=== PATIENT | female | born 1945 | race Caucasian/White ===

== ENCOUNTER 2020-07-02 13:40 | Emergency (ER) | payer OTHER, MEDICARE, SELFPAY ==
[2020-07-02 13:52] VITALS: BP 176/84; PULSE 78; RESP 18; TEMP 36.7; O2SAT 95; BMI 36.3
[2020-07-02 14:58] VITALS: BP 140/82; PULSE 76; RESP 18; O2SAT 95
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
[2020-07-02 15:58] VITALS: BP 155/93; PULSE 74; O2SAT 96
[2020-07-02 16:27] VITALS: BP 155/93; PULSE 99; O2SAT 90
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
[2020-07-02 17:14] VITALS: BP 168/86; PULSE 75; RESP 18; O2SAT 92
[2020-07-02 17:16] VITALS: BP 168/86; PULSE 75; O2SAT 93
--- NOTE | 2020-07-05 10:09 | DCPLANNER ---
sales strategy manager had message to schedule a follow up appointment for patient with ENT. sales strategy manager emailed patients information to both Cara and Jackie at [facility] General Surgery. Patients information will be printed and reviewed. Clinic will call patient with appointment information.
--- NOTE | 2020-07-12 11:13 | DCPLANNER ---
Clinic called patient to schedule a follow up appointment and patient stated that he did not want an appointment at this time. Patient stated that she would call the clinic back to schedule an appointment, patient has not called clinic back to schedule. Clinic has tried to call patient and again and sent patient a letter stating that if patient wanted to schedule an appointment, for patient to call clinic.
== END 2020-07-02 17:17 | disposition home or self-care (01) ==
PROVIDERS: Emergency Provider Family Medicine
DX: S02.2XXA Fracture of nasal bones, initial encounter for closed fracture (principal); S02.92XA Unspecified fracture of facial bones, initial encounter for closed fracture; Z79.82 Long term (current) use of aspirin; Z79.84 Long term (current) use of oral hypoglycemic drugs; V89.2XXA Person injured in unspecified motor-vehicle accident, traffic, initial encounter
CPT/HCPCS: 70450; 70486; 72125; 73030; 99283

== ENCOUNTER 2020-09-01 09:09 | Outpatient (CLI) | payer OTHER, SELFPAY ==
--- NOTE | 2020-09-01 09:13 | MR_ITS ---
WS: [id number] MRI RIGHT SHOULDER NONCONTRAST TECHNIQUE: Sagittal T2, coronal T1, T2 and proton density imaging. Axial gradient PDE imaging. CLINICAL INFORMATION: PAIN IN RIGHT SHOULDER COMPARISON: None. FINDINGS: Moderate arthritis AC joint with hypertrophic spurring. Mild edema. Slight subacromial spurring. Mild downsloping acromion. AC joint effusion. Small subacromial/subdeltoid effusion. Mild diffuse thinning of the distal supraspinatus. Supraspinat us is intact. Normal infraspinatus. Normal teres minor. Normal subscapularis. Tiny biceps tendon in t he bicipital groove which appears intact. Biceps labral anchor appears intact. Moderate degenerative fraying of the glenoid labrum. No acute fractures. MR/MR shoulder RT wo con* [id number] IMPRESSION: 1. Moderate degenerative arthritis AC joint with mild edema and synovial thick ening. Mild downsloping acromion. 2. Chronic thinning of the distal supraspinatus. No high-grade rotator cuff te ars. 3. Tiny biceps tendon in the bicipital groove appears intact. Biceps labral an chor appears intact. 4. Normal bone marrow signal in the humeral head and neck. No acute fractures. 5. Degenerative fraying of the glenoid labrum which appears grossly intact.
--- NOTE | 2020-09-01 10:01 | XR_ITS ---
WS: [id number] WRIST LEFT TECHNIQUE: 3 views of the left wrist CLINICAL INFORMATION: LEFT WRIST PAIN COMPARISON: None. FINDINGS: Mild narrowing of the radiocarpal joint. Normal distal radial ulnar joint. Normal scaphoid and lunate . Advanced degenerative arthritis first CMC and STT with sclerosis and degenerative changes. Mild sof t tissue edema. No visualized fractures. Partially visualized sclerotic lesion in the fourth proximal phalanx likely enchondroma. Recommend de dicated hand x-ray for further evaluation. XR/XR wrist LT min 3V* [id number] IMPRESSION: 1. Mild soft tissue edema about the left wrist. No visualized fractures. 2. Advanced degenerative arthritis first CMC and STT with sclerosis and subcho ndral cystic change. 3. Partially visualized sclerotic lesion in the fourth proximal phalanx likely enchondroma. Recommend dedicated hand x-ray for further evaluation.
== END 2020-09-01 09:10 | disposition home or self-care (01) ==
PROVIDERS: Visit Provider Family Medicine
DX: R60.0 Localized edema (principal); M19.032 Primary osteoarthritis, left wrist
CPT/HCPCS: 73110; 73221

== ENCOUNTER 2020-09-23 10:52 | Outpatient (CLI) | payer MEDICARE, OTHER, SELFPAY ==
--- NOTE | 2020-09-23 10:58 | XR_ITS ---
WS: [id number] Left hand, 3 views, 09/23/2020 Clinical Data: PAIN IN LEFT HAND Comparison: Left wrist, 09/01/2020. Findings: No fractures or dislocations are seen. There is osteoarthritic change at the base of the left first m etacarpal as it articulates with the trapezium. The probable enchondroma at the base of the left four th proximal phalanx may be partly obscured by the patient's ring. There is minimal osteoarthritic columba nge of the second through fifth DIP joints. Impression: 1. 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 2. Probable enchondroma at the base of the fourth proximal phalanx of the left hand. 3. Osteoarthritic change of the DIP joints of the second through fifth fingers of the left hand.
== END 2020-09-23 10:53 | disposition home or self-care (01) ==
LOC: RADWPI 10:57
PROVIDERS: PCP Family Medicine; Visit Provider Family Medicine
DX: M79.642 Pain in left hand (principal)
CPT/HCPCS: 73130

== ENCOUNTER → 2021-01-19 09:35 | Outpatient (BNVA) | payer OTHER, SELFPAY | PROVIDERS: PCP Family Medicine; Referring Provider Family Medicine; Visit Provider Specialist | DX: M19.032 Primary osteoarthritis, left wrist (principal); M25.532 Pain in left wrist | CPT/HCPCS: 73110 ==

== ENCOUNTER 2021-01-19 11:20 | Outpatient (CLI) | payer OTHER, MEDICARE, SELFPAY | END 2021-01-19 11:21 | disposition home or self-care (01) | LOC: SPT 11:21 | PROVIDERS: PCP Family Medicine; Visit Provider Specialist | DX: Z46.89 Encounter for fitting and adjustment of other specified devices (principal); M18.12 Unilateral primary osteoarthritis of first carpometacarpal joint, left hand | CPT/HCPCS: 97760; L3924 ==

== ENCOUNTER → 2021-02-09 10:59 | Outpatient (BNVA) | payer OTHER, SELFPAY | PROVIDERS: PCP Family Medicine; Referring Provider Family Medicine; Visit Provider Specialist | DX: M19.011 Primary osteoarthritis, right shoulder (principal); M25.511 Pain in right shoulder | CPT/HCPCS: 73030 ==

== ENCOUNTER 2021-02-16 10:42 | Outpatient (CLI) | payer OTHER, SELFPAY ==
--- NOTE | 2021-02-16 10:47 | MR_ITS ---
WS: [id number] MRI RIGHT SHOULDER NONCONTRAST TECHNIQUE: Sagittal T2, coronal T1, T2 and proton density imaging. Axial gradient PDE imaging. CLINICAL INFORMATION: PRIMARY OSTEOARTHRITIS COMPARISON: September 01, 2020 FINDINGS: Prominent protruding osteophytes arising from the acromion and clavicle projecting inferiorly as seen on the recent radiograph February 09, 2021. This impinges the distal supraspinatus and supraspinatus at the level of glenohumeral joint. Moderate degenerative arthritis AC joint with edema and synovial thickening. Small amount of fluid in the joint. Small subacromial/subdeltoid effusion. Normal bone ma rrow signal in the humerus and glenoid. Tendinopathy with thinning of the distal supraspinatus. Impingement and deformity of the supraspinatu s due to the protruding osteophytes. Normal infraspinatus. Normal teres minor. Small subcoracoid effu vivek. Glenoid labrum appears grossly normal. Tiny biceps tendon in the bicipital groove. Tendinopathy involving the intra-articular biceps tendon with increased T2 signal abnormality. Biceps labral anch or appears grossly intact. MR/MR shoulder RT wo con* [id number] IMPRESSION: 1. Advanced hypertrophic changes AC joint with mild downsloping acromion. Prot ruding inferior projecting osteophytes at the distal acromion and distal clavic le with impingement on the far anterior supraspinatus. Associated tendinopathy in the supraspinatus with deformity. Chronic thinning. No full-thickness tears. 2. Rotator cuff is otherwise intact. 3. Tiny biceps tendon in the bicipital groove unchanged from previous. Biceps labral anchor appears intact. 4. Tendinopathy involving the intra-articular biceps tendon with increased T2 signal abnormality. 5. Small subacromial/subdeltoid effusion.Small subcoracoid effusion.
== END 2021-02-16 10:43 | disposition home or self-care (01) ==
LOC: RADWPI 10:43
PROVIDERS: PCP Family Medicine; Visit Provider Specialist
DX: M25.511 Pain in right shoulder (principal); M19.011 Primary osteoarthritis, right shoulder; M25.411 Effusion, right shoulder; M75.21 Bicipital tendinitis, right shoulder; M25.711 Osteophyte, right shoulder; M75.81 Other shoulder lesions, right shoulder; X58.XXXA Exposure to other specified factors, initial encounter; S49.91XA Unspecified injury of right shoulder and upper arm, initial encounter
CPT/HCPCS: 73221

== ENCOUNTER → 2022-04-27 08:05 | Outpatient (BNVA) | payer OTHER, MEDICARE, SELFPAY | PROVIDERS: PCP Family Medicine; Visit Provider Specialist | DX: M19.011 Primary osteoarthritis, right shoulder (principal); Z71.89 Other specified counseling | CPT/HCPCS: 20610; J1100; J2795; J3301 ==

== ENCOUNTER → 2022-08-03 09:06 | Outpatient (BNVA) | payer OTHER, MEDICARE, SELFPAY | PROVIDERS: PCP Family Medicine; Visit Provider Specialist | DX: M19.011 Primary osteoarthritis, right shoulder (principal); M75.41 Impingement syndrome of right shoulder | CPT/HCPCS: 20610; J1100; J2795; J3301 ==

== ENCOUNTER 2022-08-10 13:40 | Outpatient (CLI) | payer MEDICARE, SELFPAY ==
--- NOTE | 2022-08-10 13:47 | MM_ITS ---
WS: [id number] LEFT 3D TOMOSYNTHESIS DIGITAL MAMMOGRAPHY WITH CAD CLINICAL INFORMATION: ANNUAL;HX BREAST CA;RT MST. Prior RIGHT mastectomy. COMPARISON: 2013 TECHNIQUE: 3 views of the left breast were obtained. FINDINGS: Scattered fibroglandular densities of the left breast. No suspicious focal mass, asymmetry, calcifications, or architectural distortion. No evidence of gabe gnancy. MM/[place] [id number] IMPRESSION: BI-RADS: 1-Negative FOLLOW UP: 1 Year Follow-up Recommend return to annual diagnostic mammography.
== END 2022-08-10 13:41 | disposition home or self-care (01) ==
LOC: RAD 13:42
PROVIDERS: PCP Family Medicine; Visit Provider Family Medicine
DX: Z85.3 Personal history of malignant neoplasm of breast (principal)
CPT/HCPCS: 77061; G0279

== ENCOUNTER → 2022-11-16 08:42 | Outpatient (BNVA) | payer MEDICARE, SELFPAY | PROVIDERS: PCP Family Medicine; Visit Provider Specialist | DX: M19.011 Primary osteoarthritis, right shoulder (principal) | CPT/HCPCS: 20610; J1100; J2795; J3301 ==

== ENCOUNTER → 2023-02-15 09:31 | Outpatient (BNVA) | payer MEDICARE, SELFPAY | PROVIDERS: PCP Family Medicine; Visit Provider Specialist | DX: M19.011 Primary osteoarthritis, right shoulder; Z71.89 Other specified counseling | CPT/HCPCS: 20610; J1100; J2795; J3301 ==

== ENCOUNTER → 2023-06-07 08:15 | Outpatient (BNVA) | payer MEDICARE, SELFPAY | PROVIDERS: PCP Family Medicine; Visit Provider Specialist | DX: M19.011 Primary osteoarthritis, right shoulder (principal); M75.41 Impingement syndrome of right shoulder | CPT/HCPCS: 20610; J1100; J2795; J3301 ==

== ENCOUNTER 2023-07-13 13:49 | Outpatient (CLI) | payer MEDICARE, SELFPAY ==
--- NOTE | 2023-07-13 13:56 | XR_ITS ---
WS: [id number] Chest 2 views, 07/13/2023 Clinical Data: COPD Comparison: Two-view chest, 09/04/2018 Findings: No nodules, masses or effusions are seen. The heart is normal. The pulmonary vascularity is not increased. No pneumonia or pneumothorax is seen. The diaphragms are flattened. The aortic arch s hows calcification and tortuosity. There is a kyphosis with osteoarthritic spurring of the thoracic s pine. Impression: 1. Atherosclerosis 2. Hyperinflation.
== END 2023-07-13 13:50 | disposition home or self-care (01) ==
LOC: RAD 13:51
PROVIDERS: PCP Family Medicine; Visit Provider Family Medicine
DX: J44.9 Chronic obstructive pulmonary disease, unspecified (principal)
CPT/HCPCS: 71046

== ENCOUNTER → 2023-08-31 10:25 | Outpatient (BNVA) | payer MEDICARE, SELFPAY | PROVIDERS: PCP Family Medicine; Visit Provider Specialist | DX: M75.41 Impingement syndrome of right shoulder (principal); M19.011 Primary osteoarthritis, right shoulder; Z71.89 Other specified counseling | CPT/HCPCS: 20610; J1100; J2795; J3301 ==

== ENCOUNTER → 2023-12-12 14:05 | Outpatient (BNVA) | payer MEDICARE, SELFPAY | PROVIDERS: PCP Family Medicine; Visit Provider Specialist | DX: M75.41 Impingement syndrome of right shoulder (principal); M19.011 Primary osteoarthritis, right shoulder; Z71.89 Other specified counseling | CPT/HCPCS: 20610 ==

== ENCOUNTER → 2024-03-27 14:37 | Outpatient (BNVA) | payer MEDICARE, SELFPAY | PROVIDERS: PCP Family Medicine; Visit Provider Specialist | DX: M19.011 Primary osteoarthritis, right shoulder (principal); M75.41 Impingement syndrome of right shoulder; Z71.89 Other specified counseling | CPT/HCPCS: 20610; J1100; J2795; J3301 ==

== ENCOUNTER → 2024-07-04 09:14 | Outpatient (BNVA) | payer MEDICARE, SELFPAY | PROVIDERS: PCP Family Medicine; Visit Provider Specialist | DX: M19.011 Primary osteoarthritis, right shoulder (principal); M75.41 Impingement syndrome of right shoulder; Z71.89 Other specified counseling | CPT/HCPCS: 20610; J1100; J2795; J3301 ==

== ENCOUNTER 2024-08-11 12:40 | Outpatient (CLI) | payer MEDICARE, SELFPAY ==
--- NOTE | 2024-08-11 12:54 | MM_ITS ---
WS: [id number] LEFT 3D TOMOSYNTHESIS DIGITAL MAMMOGRAPHY WITH CAD CLINICAL INFORMATION: MALIGNANT NEOPLASM OF BREAST HISTORY: RIGHT mastectomy COMPARISON: 08/10/2022 TECHNIQUE: 3 views of the left breast were obtained. FINDINGS: Scattered fibroglandular densities of the left breast. No suspicious focal mass, asymmetry, calcifications, or architectural distortion. No evidence of malignancy. MM/MM diag LT tomosynthesis [id number] IMPRESSION: DENSITY: There are scattered areas of fibroglandular density. BI-RADS: 1 - Negative. FOLLOW UP: 1 Year Follow-up Recommend return to annual screening mammography.
== END 2024-08-11 12:41 | disposition home or self-care (01) ==
PROVIDERS: PCP Family Medicine; Visit Provider Family Medicine
DX: C50.912 Malignant neoplasm of unspecified site of left female breast (principal); R92.322 Mammographic fibroglandular density, left breast
CPT/HCPCS: 77061; G0279

== ENCOUNTER → 2024-09-08 12:47 | Outpatient (BNVA) | payer MEDICARE, SELFPAY | PROVIDERS: PCP Family Medicine; Referring Provider Family Medicine; Visit Provider Nurse Practitioner Family | DX: R22.0 Localized swelling, mass and lump, head (principal); R20.8 Other disturbances of skin sensation; L30.9 Dermatitis, unspecified; L82.1 Other seborrheic keratosis; L57.8 Other skin changes due to chronic exposure to nonionizing radiation; Z80.8 Family history of malignant neoplasm of other organs or systems; L57.0 Actinic keratosis | CPT/HCPCS: 17000; 99204 ==

== ENCOUNTER 2024-09-09 13:38 | Outpatient (CLI) | payer MEDICARE, SELFPAY ==
--- NOTE | 2024-09-09 13:52 | XR_ITS ---
WS: [id number] SCREENING DEXA SCAN PO-MO CLINICAL INFORMATION: postmenopausal COMPARISON: None. FINDINGS: The L1-L4 bone mineral density measures 1.380 g/cm2. This corresponds to a T score score of 1.7 and Z score of 3.4. Left femoral neck bone mineral density measures 1.000 g/cm2. This corresponds to a T score of -0.1 and Z score of 1.8. Right femoral neck bone mineral density measures 1.005 g/cm2. This corresponds to a T score 0.0of and Z score of 1.8. Mean femoral neck bone mineral density measures 1.002 g/cm2. This corresponds to a T score of 0.0 and Z score of 1.8. XR/XR DEXA axial skeleton* [id number] IMPRESSION: Normal bone mineralization. Patient's FRAX calculated 10 year probability for major osteoporotic fracture i s 10.6% and osteoporotic hip fracture is 2.8%.
== END 2024-09-09 13:39 | disposition home or self-care (01) ==
LOC: RAD 13:39
PROVIDERS: PCP Family Medicine; Visit Provider Family Medicine
DX: Z78.0 Asymptomatic menopausal state (principal)
CPT/HCPCS: 77080

== ENCOUNTER → 2024-10-03 09:24 | Outpatient (BNVA) | payer MEDICARE, SELFPAY | PROVIDERS: PCP Family Medicine; Visit Provider Specialist | DX: M19.011 Primary osteoarthritis, right shoulder (principal) | CPT/HCPCS: 20610; J1100; J2795; J3301; J9999 ==

== ENCOUNTER → 2025-01-07 14:20 | Outpatient (BNVA) | payer MEDICARE, SELFPAY | PROVIDERS: PCP Nurse Practitioner Family; Visit Provider Specialist | DX: M19.011 Primary osteoarthritis, right shoulder (principal); M75.41 Impingement syndrome of right shoulder | CPT/HCPCS: 20610; J1100; J2795; J3301; J9999 ==

== ENCOUNTER → 2025-01-09 14:01 | Outpatient (BNVA) | payer MEDICARE, SELFPAY | PROVIDERS: PCP Nurse Practitioner Family; Visit Provider Nurse Practitioner Family | DX: R22.0 Localized swelling, mass and lump, head (principal); R20.8 Other disturbances of skin sensation; L40.0 Psoriasis vulgaris; L57.8 Other skin changes due to chronic exposure to nonionizing radiation; L82.1 Other seborrheic keratosis; Z80.8 Family history of malignant neoplasm of other organs or systems; L57.0 Actinic keratosis | CPT/HCPCS: 17000; 99214 ==

== ENCOUNTER → 2025-04-24 10:02 | Outpatient (BNVA) | payer MEDICARE, SELFPAY | PROVIDERS: PCP Nurse Practitioner Family; Visit Provider Specialist | DX: M19.011 Primary osteoarthritis, right shoulder (principal) | CPT/HCPCS: 20610; J1100; J2795; J3301; J9999 ==